=== PATIENT | female | born 1995 | race African-American/Black ===

== ENCOUNTER 2019-05-19 20:53 | Inpatient (IN) ==
[2019-05-19] MEDS ORDERED: LACTATED RINGERS 500 ML IV PRN (21:09)
[2019-05-19] MEDS ORDERED: MEPERIDINE 50 MG/1 ML VIAL IV PRN (21:09)
[2019-05-19] MEDS ORDERED: BUTORPHANOL 2 MG/ML VIAL IV PRN (21:09)
[2019-05-19] MEDS ORDERED: ONDANSETRON 4 MG/2 ML VIAL IV PRN (21:09)
[2019-05-19 21:40] LABS: Basophils % 0.3 % (0.0-0.8); Eosinophils % 0.2 % (0.00-10.9); Hematocrit 28.9 VOL% (35.7-47.0); Hemoglobin 9.2 GM/DL (12.0-16.0); Immature Granulocytes % 0.9 %; Immature Granulocytes Absolute 0.05 #; Lymphocytes # 1.2 10*3/uL (1.4-4.0); Lymphocytes % 19.7 % (21.3-54.2); Mean Corpuscular HGB Conc 31.8 GM/DL (32-36); Mean Corpuscular Volume 80.1 FL (87-102); Mean Platelet Volume 10.6 FL (9.6-12.0); Monocytes % 12.5 % (1.7-12.7); Neutrophils % 66.4 % (38.7-73.9); Platelet Count 346 T/CUMM (130-400); Red Blood Count 3.61 MC/CUMM (3.8-5.5); Red Cell Distribution Width 16.4 % (9.3-17.3); White Blood Count 5.9 T/CUMM (4-12)
[2019-05-19] MEDS: LACTATED RINGERS 1,000 ML IV SCH (23:45)
[2019-05-20] MEDS: LACTATED RINGERS 1,000 ML IV SCH (06:35)
[2019-05-21] MEDS ORDERED: OXYTOCIN/LR 20 UNIT/1,000 ML BAG IV SCH (07:30)
[2019-05-21] MEDS ORDERED: CARBOPROST TROMETHAMINE 250 MCG/ML AMP IM ONE (09:44)
[2019-05-21] MEDS ORDERED: miSOPROStol 200 MCG TABLET ONE (09:44)
[2019-05-21] MEDS ORDERED: METHYLERGONOVINE 0.2 MG/1 ML AMP ONE (09:44)
[2019-05-21] MEDS ORDERED: LIDOCAINE 1% 50 ML VIAL ONE (09:44)
[2019-05-21] MEDS ORDERED: BISACODYL 10 MG SUPP RECTAL PRN (10:54)
[2019-05-21] MEDS ORDERED: OXYTOCIN/LR 20 UNIT/1,000 ML BAG IV ONE (10:54)
[2019-05-21] MEDS ORDERED: RHO(D) IMMUNE GLOBULIN 300 MCG SYRINGE IM ONE (10:54)
[2019-05-21] MEDS ORDERED: ONDANSETRON 4 MG/2 ML VIAL IV PRN (10:54)
[2019-05-21] MEDS ORDERED: DIPH/TET/ACEL PERT BOOSTER VACCINE 0.5 ML VIAL IM ONE (10:54)
[2019-05-21] MEDS ORDERED: WITCH HAZEL PADS 100/JAR TOP PRN (10:54)
[2019-05-21] MEDS ORDERED: MEASLES/MUMPS/RUBELLA VACCINE 0.5 ML VIAL SUBCUT ONE (10:54)
[2019-05-21] MEDS ORDERED: ACETAMINOPHEN 325 MG TABLET PO PRN (10:54)
[2019-05-21] MEDS ORDERED: HYDROCORTISONE 2.5% RECTAL CREAM 30 GM TUBE TOP PRN (10:54)
[2019-05-21] MEDS ORDERED: oxyCODONE/ACETAMINOPHEN 5-325 MG TABLET PO PRN ×2 (10:54)
[2019-05-21] MEDS ORDERED: IBUPROFEN 800 MG TABLET PO PRN (10:54)
[2019-05-21] MEDS ORDERED: BENZOCAINE 20%/MENTHOL 0.5% SPRAY 56 GM CAN TOP PRN (10:54)
[2019-05-21] MEDS ORDERED: LANOLIN 50% CREAM 0.3 OZ TUBE TOP PRN (10:54)
[2019-05-21] MEDS: DOCUSATE SODIUM 100 MG CAPSULE PO SCH (21:15)
[2019-05-22 06:42] LABS: Basophils % 0.3 % (0.0-0.8); Eosinophils % 0.3 % (0.00-10.9); Hemoglobin 8.8 GM/DL (12.0-16.0); Immature Granulocytes % 0.8 %; Immature Granulocytes Absolute 0.07 #; Lymphocytes # 1.6 10*3/uL (1.4-4.0); Lymphocytes % 17.3 % (21.3-54.2); Mean Corpuscular HGB Conc 31.4 GM/DL (32-36); Mean Corpuscular Volume 79.8 FL (87-102); Mean Platelet Volume 10.2 FL (9.6-12.0); Monocytes % 13.6 % (1.7-12.7); Neutrophils % 67.7 % (38.7-73.9); Platelet Count 311 T/CUMM (130-400); Red Blood Count 3.51 MC/CUMM (3.8-5.5); Red Cell Distribution Width 16.7 % (9.3-17.3)
[2019-05-22] MEDS: DOCUSATE SODIUM 100 MG CAPSULE PO SCH ×2 (10:16→21:15)
[2019-05-23 07:20] VITALS: BP 120/71
[2019-05-23] MEDS: DOCUSATE SODIUM 100 MG CAPSULE PO SCH (09:50)
== END 2019-05-23 13:15 | disposition home or self-care (01) | DRG 807 ==
LOC: N.LDOUT 20:53 → N.LD 20:55 → N.OB 05-21 12:55
PROVIDERS: ADMIT Specialist; ATTEND Specialist